=== PATIENT | male | born 1985 | race Caucasian/White ===

== ENCOUNTER 2018-05-18 13:30 | Day surgery (SDC) | payer OTHER ==
[~2018-05-18] VITALS: Ht 188 cm; Wt 81.6 kg
[2018-05-18] VITALS (9 sets, daily range): BP systolic 120–137; BP diastolic 64–84
--- NOTE | 2018-05-18 07:49 | Pre-Procedure Note/Attestation ---
Pre-Procedure Note/Attestation Complete Prior to Procedure Planned Procedure: right Procedure Narrative: shoulder arthroscopy, cc ligament reconstruction Indications for Procedure Pre-Operative Diagnosis: right shoulder rct/ ac joint seperation Attestation I attest that I discussed the nature of the procedure; its benefits; risks and complications; and alternatives (and the risks and benefits of such alternatives ), prior to the procedure, with the patient (or the patient's legal in store marketing representative). I attest that, if there was a reasonable possibility of needing a blood transfusion, the patient (or the patient's legal in store marketing representative) was given the [facility] standardized written summary, pursuant to the [place] Blood Safety Act ([place] Health and Safety Code # 1645, as amended). I attest that I re-evaluated the patient just prior to the surgery and that there has been no change in the patient's H&P, except as documented below: Nilesh Gifford MD May 18, 2018 07:49
--- NOTE | 2018-05-18 07:49 | Operative Note - PDOC ---
Operative Note Operative Note Pre-op Diagnosis: right shoulder rct/ ac joint seperation Procedure: see op report Post-op Diagnosis: same as pre-op plus Operative Findings: consistent w/pre-op dx studies Anesthesia: general Specimen: none Complications: none Condition: stable Estimated Blood Loss: none Implant(s) used?: Yes Nilesh Gifford MD May 18, 2018 07:49
[~2018-05-18 13:30] MED LIST: D5 1/2NS 1,000 ML IV SCH; HYDROmorphone 1mg/ml Carpuject SUBQ PRN; NKM; Norco 5mg/325mg tab ORAL PRN; Tylenol #3 tab (300mg/30mg) ORAL PRN; ceFAZolin 1gm in D5W 55ml IVP ONE; celeBREX 200mg Cap **SURGERY PATIENTS ONLY ORAL ONE; oxyCONTIN 20mg tab ORAL ONE
[2018-05-18] MEDS ORDERED: celeBREX 200mg Cap **SURGERY PATIENTS ONLY ORAL ONE (14:20)
[2018-05-18] MEDS ORDERED: oxyCONTIN 20mg tab ORAL ONE (14:20)
--- NOTE | 2018-05-18 15:18 | Anethesia Preoperative Eval ---
Anesthesia Pre-op PMH/ROS General Date of Evaluation: May 18, 2018 Anesthesiologist: Luis Alberto ASA Score: ASA 2 Mallampati Score Class I : Soft palate, uvula, fauces, pillars visible Class II: Soft palate, uvula, fauces visible Class III: Soft palate, base of uvula visible Class IV: Only hard plate visible Mallampati Classification: Class II Surgeon: Balta Diagnosis: Right shoulder derangement Surgical Procedure: Right shoulder arthroscopy Anesthesia History: none Family History: no anesthesia problems Allergies: Coded Allergies: No Known Allergies (Unverified , 05/17/18) Medications: see eMAR Past Medical History Cardiovascular: Denies: HTN, CAD, NC, valve dz, arrhythmia, other Pulmonary: Denies: asthma, COPD, JIM, other Gastrointestinal/Genitourinary: Denies: GERD, CRI, ESRD, other Neurologic/Psychiatric: Reports: other - migraines; Denies: dementia, CVA, depression/anxiety, TIA Endocrine: Denies: DM, hypothyroidism, steroids, other HEENT: Denies: cataract (L), cataract (R), glaucoma, [place] (L), [place] (R), other Hematology/Immune: Denies: anemia, DVT, bleeding disorder, other Musculoskeletal/Integumentary: Denies: OA, RA, DJD, DDD, edema, other PSxH Narrative: right ankle sx, right elbow/forearm sx Anesthesia Pre-op Phys. Exam Physician Exam Last Vital Signs Date Time Temp Pulse Resp B/P (MAP) Pulse Ox O2 Delivery O2 Flow Rate FiO2 05/18/18 14:09 Room Air 05/18/18 14:03 98.1 75 18 120/71 (87) 99 98.1 Constitutional: NAD Cardiovascular: RRR Respiratory: CTA Airway Exam Mallampati Score: Class II MO: full ROM: limited Teeth: intact Anesthesia Pre-op A/P Labs see chart Studies Pre-op Studies: EKG - sr Risk Assessment & Plan Assessment: ASA II Plan: GA with interscalene nerve block Status Change Before Surgery: No Pre-Antibiotics Drug: Ancef 2g Given Within 1 Hr of Incision: Yes Naye Gaviria MD May 18, 2018 15:17
[2018-05-18] MEDS ORDERED: Lidocaine 1% MPF 10mg/ml 5ml ONE (16:25)
[2018-05-18] MEDS ORDERED: Propofol 200mg/20ml IV ONE (16:25)
[2018-05-18] MEDS ORDERED: fentaNYL 100 mcg/2 mL IV ONE (16:26)
[2018-05-18] MEDS ORDERED: Midazolam 2mg/2ml Inj ONE (16:26)
[2018-05-18] MEDS ORDERED: Bupivacaine w/Epi 0.25% 30ml Vial INJ ONE ×2 (16:36→16:37)
[2018-05-18] MEDS ORDERED: Morphine Sulfate PF 10 ML ONE (16:36)
[2018-05-18] MEDS ORDERED: Ketorolac 30mg Inj ONE ×2 (16:36→16:46)
[2018-05-18] MEDS ORDERED: EPINEPHrine 1mg/1ml Amp ONE (16:36)
[2018-05-18] MEDS ORDERED: Kenalog-40 1ml Vial ONE (16:36)
[2018-05-18] MEDS ORDERED: LR 1000ml 1,000 ML IVLG SCH (16:47)
[2018-05-18] MEDS ORDERED: Hydromorphone 0.5mg/0.5ml inj IVP PRN (17:00)
[2018-05-18] MEDS ORDERED: Midazolam 2mg/2ml Inj IVP PRN (17:00)
[2018-05-18] MEDS ORDERED: Zemuron 50mg/5ml Inj IV ONE (17:00)
[2018-05-18] MEDS ORDERED: Metoclopramide 10mg/2ml Inj IVP PRN (17:00)
[2018-05-18] MEDS ORDERED: LORazepam Inj 2mg/ml 1ml IV PRN (17:00)
[2018-05-18] MEDS ORDERED: DiphenhydrAMINE 50mg/ml Inj IVP PRN (17:00)
[2018-05-18] MEDS ORDERED: LR 1000ml ONE (17:00)
[2018-05-18] MEDS ORDERED: Labetalol 5mg/ml 20ml vial IV PRN (17:00)
[2018-05-18] MEDS ORDERED: fentaNYL 100 mcg/2 mL IV PRN (17:00)
[2018-05-18] MEDS ORDERED: NS Irrig 4000ml IRRIG ONE (17:00)
[2018-05-18] MEDS ORDERED: Ketorolac 30mg Inj IV PRN (17:00)
[2018-05-18] MEDS ORDERED: Duramorph PF 10mg/10ml amp EPIDUR ONE (17:28)
--- NOTE | 2018-05-18 19:14 | Immediate Post-Op Evaluation ---
Immediate Post-Op Evalulation Immediate Post-Op Evalulation Procedure: Right shoulder arthroscopy Date of Evaluation: May 18, 2018 Time of Evaluation: 19:15 IV Fluids: 1.1L Blood Products: 0 Estimated Blood Loss: min Urinary Output: 0 Blood Pressure Systolic: 120 Blood Pressure Diastolic: 65 Pulse Rate: 82 Respiratory Rate: 16 O2 Sat by Pulse Oximetry: 100 Temperature (Fahrenheit): 97.9 Pain Score (1-10): 0 Nausea: No Vomiting: No Complications 0 Patient Status: awake, reacts, patent, none Hydration Status: adequate Drug: Ancef 2g Given Within 1 Hr of Incision: Yes Time Given: 17:30 Naye Gaviria MD May 18, 2018 19:14
--- NOTE | 2018-05-18 19:15 | 48 Hour Post Anesthesia Eval ---
Post Anesthesia Evaluation Procedure: Right shoulder arthroscopy Date of Evaluation: May 18, 2018 Airway: patent Nausea: No Vomiting: No Pain Intensity: 0 Hydration Status: adequate Cardiopulmonary Status: at baseline Mental Status/LOC: patient returned to baseline Post-Anesthesia Complications: 0 Follow-up care needed: ready to discharge Naye Gaviria MD May 18, 2018 19:15
--- NOTE | 2018-05-19 02:45 | Operative Note - Dictated ---
DATE OF OPERATION: 05/18/2018 PREOPERATIVE DIAGNOSES: 1. Right shoulder AC joint sprain. 2. Right shoulder anterior labral tear. 3. Right shoulder partial bursal-sided articular rotator cuff tear. PROCEDURES: 1. Right shoulder diagnostic arthroscopy. 2. Right shoulder anterior labral stabilization. 3. Right shoulder subacromial decompression bursoscopy. 4. Debridement/repair of partial bursal-sided rotator cuff tear. SURGEON: Nilesh Gifford M.D. ANESTHESIA: Interscalene with general. INDICATION FOR PROCEDURE: The patient is a pleasant 32-year-old gentleman, who had a significant injury to the right shoulder, had difficulty articulating, failed conservative treatment, and diagnosed with AC joint separation with concurrent anterior labral tear. Risks, limitations, expectations, and complications of the procedure were discussed in detail. We discussed with him that we will go ahead and perform a diagnostic arthroscopy and then fix the labrum. At the time of the surgery, we would evaluate for AC instability and if he has significant stability, then we will proceed with a formal coracoclavicular ligament reconstruction using the tibialis anterior allograft. Risks, limitations, expectations, and complications of the procedure were discussed in detail. All questions addressed. DESCRIPTION OF PROCEDURE: After informed consent was obtained, the patient was brought to the operating room. The patient was placed under interscalene general anesthesia. The patient was then carefully placed in beach-chair position. Right shoulder was prepped and draped in a sterile manner. Ancef was administered. Time-out was performed. Examination under anesthesia showed that there was a slight anterior translation to the AC joint, but no significant posterior or inferior displacement. It was felt that clinically there was enough instability, maybe consider formal repair depending on what is the nature of the joint space. Therefore, the camera was then placed in the glenohumeral joint. There is significant positive drive-through test. There is a tear along the inferior-anterior labrum. Biceps tendon appeared to be intact along with the superior labrum. Subscap was intact along with the bursal-sided rotator cuff. Two anterior working portals were established. The labrum was debrided of the anterior glenoid and two arthroscopic knots were then used to stitch down the anterior-inferior labrum back down to glenoid. Of note, there is grade 2 chondral damage in glenoid. At this point, the camera was positioned in the subacromial space. There was significant hypertrophic bursal tissue. Lateral working portal was established and complete bursectomy was performed. Once that was done, the bursal side of rotator cuff was evaluated and there was some fraying and tearing of the bursal side of rotator cuff. Once this was debrided using a shaver, we felt no formal fixation was required. At this point, the AC joint was identified arthroscopically and the joint was manipulated. Given the intraoperative findings of the significant anterior labral pathology and that there is not gross instability of the AC joint, it was felt that formal reconstruction of cortical clavicular ligament reconstruction was not necessary at this point. Therefore, the instruments were removed. Portal sites were closed with 3-0 Monocryl suture. Steri-Strips and dressing were applied. The patient was awoken and taken to recovery room with stable vital signs. ESTIMATED BLOOD LOSS: None. COMPLICATIONS: None. SPECIMENS: None. IMPLANTS: Two JuggerKnot anchors. Nilesh Gifford M.D. DR: NICHOLAS JOB#: [id number] CC:
== END 2018-05-18 20:14 | disposition home or self-care (01) ==
LOC: SUR 13:30
DX: S43.51XA Sprain of right acromioclavicular joint, initial encounter (principal); S43.431A Superior glenoid labrum lesion of right shoulder, initial encounter; M75.111 Incomplete rotator cuff tear or rupture of right shoulder, not specified as traumatic; F17.210 Nicotine dependence, cigarettes, uncomplicated; G43.909 Migraine, unspecified, not intractable, without status migrainosus
CPT/HCPCS: 29823; 29826; J0171; J0690; J1885; J2250; J2274; J2405; J2704; J3010; J3301; 94003; 94150; C1713

== ENCOUNTER 2018-08-30 07:31 | Inpatient (IN) | payer OTHER ==
[~2018-08-30] VITALS: Ht 188 cm; Wt 80.7 kg
[2018-08-30] VITALS (15 sets, daily range): BP systolic 103–134; BP diastolic 54–73
[~2018-08-30 07:31] MED LIST changes: -D5 1/2NS 1,000 ML IV SCH; -HYDROmorphone 1mg/ml Carpuject SUBQ PRN; -Norco 5mg/325mg tab ORAL PRN; -Tylenol #3 tab (300mg/30mg) ORAL PRN; +Vancomycin 1 GM in D5W 275 ML IVPB ONE; -ceFAZolin 1gm in D5W 55ml IVP ONE; -celeBREX 200mg Cap **SURGERY PATIENTS ONLY ORAL ONE; -oxyCONTIN 20mg tab ORAL ONE
[2018-08-30 08:22] LABS: APPEARANCE,URINE SLIGHTLY CLOUDY; BILIRUBIN, URINE NEGATIVE (NEGATIVE); GLUCOSE, URINE (UA) NEGATIVE (NEGATIVE); KETONES,URINE 1+ (NEGATIVE); LEUKOCYTE ESTERASE ,URINE 1+ (NEGATIVE); NITRITE,URINE NEGATIVE (NEGATIVE); PH,URINE 5 (4.5-8.0); PROTEIN,URINE 2+ (NEGATIVE); UROBILINOGEN,URINE 4 MG/DL (0.0-1.0)
[2018-08-30 08:39] LABS: COLOR,URINE YELLOW
[2018-08-30] MEDS ORDERED: ceFAZolin sod 2 GM in NS 55 ML IVPB ONE (08:45)
--- NOTE | 2018-08-30 08:45 | NUR ---
IV LR WAS STARTED BY GABRIEL HUMPHREYOPS RN. NO S/S OF INFILTRATION.
--- NOTE | 2018-08-30 09:31 | Diagnostic Imaging Report ---
Indication: Cough Technique: One view of the chest Comparison: none Findings: Lungs and pleural spaces are clear. Heart size is normal Impression: No acute process
[2018-08-30] MEDS ORDERED: LR 1000ml 1,000 ML IVLG SCH (10:31)
--- NOTE | 2018-08-30 10:33 | Anethesia Preoperative Eval ---
Anesthesia Pre-op PMH/ROS General Date of Evaluation: Aug 30, 2018 Time of Evaluation: 11:44 Anesthesiologist: Armand ASA Score: ASA 1 Mallampati Score Class I : Soft palate, uvula, fauces, pillars visible Class II: Soft palate, uvula, fauces visible Class III: Soft palate, base of uvula visible Class IV: Only hard plate visible Mallampati Classification: Class II Surgeon: Tj Diagnosis: Neck Pain Surgical Procedure: ACDF C6-7 Anesthesia History: none Family History: no anesthesia problems Allergies: Coded Allergies: No Known Allergies (Unverified , 05/17/18) Medications: see eMAR Patient NPO?: Yes NPO Date: Aug 30, 2018 NPO Time: 0530 Past Medical History Neurologic/Psychiatric: Reports: other - Migranes PSxH Narrative: R Ankle, R Elbow /Forearm SX Anesthesia Pre-op Phys. Exam Physician Exam Last Vital Signs Date Time Temp Pulse Resp B/P (MAP) Pulse Ox O2 Delivery O2 Flow Rate FiO2 08/30/18 08:25 97.8 76 20 124/72 (89) 100 08/30/18 08:13 Room Air Constitutional: NAD Neurologic: CN 2-12 intact Cardiovascular: RRR Respiratory: CTA Gastrointestinal: S/NT/ND Airway Exam Mallampati Score: Class II MO: full ROM: limited Teeth: intact Anesthesia Pre-op A/P Risk Assessment & Plan Assessment: ASA 1 Plan: GA, SED, GlideScope Go Status Change Before Surgery: No Pre-Antibiotics Dru Grams Ancef, 80 mg Gentamicin IV Given Within 1 Hr of Incision: Yes Time Given: 12:01 Moi Acuna MD Aug 30, 2018 10:33
[2018-08-30] MEDS ORDERED: Dexamethasone 4mg/ml vial ONE (10:34)
[2018-08-30] MEDS ORDERED: Sodium Chloride 10ml vial INJ ONE (10:34)
[2018-08-30] MEDS ORDERED: Lidocaine 1% MPF 10mg/ml 5ml ONE (10:34)
[2018-08-30] MEDS ORDERED: Lidocaine 1% Plain 30 ml INJ ONE ×2 (10:35→13:30)
[2018-08-30] MEDS ORDERED: DiphenhydrAMINE 50mg/ml Inj IVP PRN ×2 (10:45→15:30)
[2018-08-30] MEDS ORDERED: Meperidine 50mg/ml Inj(FOR RIGORS ONLY) IVP PRN ×2 (10:45→15:30)
[2018-08-30] MEDS ORDERED: Metoclopramide 10mg/2ml Inj IVP PRN ×2 (10:45→15:30)
[2018-08-30] MEDS ORDERED: Norco 5mg/325mg tab ORAL PRN ×2 (10:45→15:30)
[2018-08-30] MEDS ORDERED: Midazolam 2mg/2ml Inj IVP PRN ×2 (10:45→15:30)
[2018-08-30] MEDS ORDERED: HYDROcodone/Acetamin 7.5/325 tab ORAL PRN ×2 (10:45→15:30)
[2018-08-30] MEDS ORDERED: Acetaminophen (Non formulary) 100 ML IV ONE (10:45)
[2018-08-30] MEDS ORDERED: Atropine Sulfate 0.4mg/ml inj IVP PRN ×2 (10:45→15:30)
[2018-08-30] MEDS ORDERED: Ketorolac 30mg Inj IV PRN ×4 (10:45→15:30)
[2018-08-30] MEDS ORDERED: oxyCODONE HCL/Acetaminophen 5/325mg ORAL PRN ×2 (10:45→15:30)
[2018-08-30] MEDS ORDERED: fentaNYL 100 mcg/2 mL IV PRN ×2 (10:45→15:30)
[2018-08-30] MEDS ORDERED: fentaNYL 100 mcg/2 mL IV ONE ×4 (10:45→14:05)
[2018-08-30] MEDS ORDERED: Hydromorphone 0.5mg/0.5ml inj IVP PRN ×3 (10:45→15:30)
[2018-08-30] MEDS ORDERED: LORazepam Inj 2mg/ml 1ml IV PRN ×2 (10:45→15:30)
[2018-08-30] MEDS ORDERED: Thrombin 5000 units TOPIC ONE (11:42)
[2018-08-30] MEDS ORDERED: Bupivacaine w/Epi 0.5% 30ml Vial INJ ONE (11:43)
[2018-08-30] MEDS ORDERED: Bacitracin 50000 Units Vial ONE (11:43)
[2018-08-30] MEDS ORDERED: NS Irrig 1000ml ONE (11:45)
[2018-08-30] MEDS ORDERED: Labetalol 5mg/ml 20ml vial IV ONE (11:45)
[2018-08-30] MEDS ORDERED: LR 1000ml ONE ×2 (11:45)
[2018-08-30] MEDS ORDERED: Propofol 1,000mg/ 100ml btl IV ONE (11:45)
[2018-08-30] MEDS ORDERED: Neostigmine 1mg/ml 10ml Inj ONE (11:45)
--- NOTE | 2018-08-30 12:43 | Immediate Post-Op Evaluation ---
Immediate Post-Op Evalulation Immediate Post-Op Evalulation Procedure: ACDF C6-7 Date of Evaluation: Aug 30, 2018 Time of Evaluation: 15:00 IV Fluids: 1100 LR Blood Products: 0 Estimated Blood Loss: 50 Urinary Output: 0 Blood Pressure Systolic: 132 Blood Pressure Diastolic: 73 Pulse Rate: 77 Respiratory Rate: 16 O2 Sat by Pulse Oximetry: 100 Temperature (Fahrenheit): 97.6 Pain Score (1-10): 2 Nausea: No Vomiting: No Complications 0 Patient Status: awake, reacts, patent, extubated, none Hydration Status: adequate Dru Grams Ancef, 80 mg Gentamicin IV Given Within 1 Hr of Incision: Yes Time Given: 12:01 Moi Acuna MD Aug 30, 2018 12:43
--- NOTE | 2018-08-30 12:44 | 48 Hour Post Anesthesia Eval ---
Post Anesthesia Evaluation Procedure: ACDF C6-7 Date of Evaluation: Aug 30, 2018 Time of Evaluation: 17:06 Blood Pressure Systolic: 118 0: 65 Pulse Rate: 72 Respiratory Rate: 18 Temperature (Fahrenheit): 98.2 O2 Sat by Pulse Oximetry: 100 Airway: patent Nausea: No Vomiting: No Pain Intensity: 2 Hydration Status: adequate Cardiopulmonary Status: Stable Mental Status/LOC: patient returned to baseline Follow-up Care/Observations: 0 Post-Anesthesia Complications: 0 Follow-up care needed: ready to discharge Moi Acuna MD Aug 30, 2018 12:44
[2018-08-30] MEDS ORDERED: Glycopyrrolate 0.2mg/ml 1ml Vial ONE (14:03)
[2018-08-30] MEDS ORDERED: Naloxone 0.4mg/ml Inj ONE (14:25)
--- NOTE | 2018-08-30 14:32 | Pre-Procedure Note/Attestation ---
Pre-Procedure Note/Attestation Complete Prior to Procedure Planned Procedure: not applicable Procedure Narrative: C6/7 herniated disk Indications for Procedure Pre-Operative Diagnosis: C6/7 herniated disk Attestation I attest that I discussed the nature of the procedure; its benefits; risks and complications; and alternatives (and the risks and benefits of such alternatives ), prior to the procedure, with the patient (or the patient's legal installation service representative). I attest that, if there was a reasonable possibility of needing a blood transfusion, the patient (or the patient's legal installation service representative) was given the [facility] standardized written summary, pursuant to the [place] Blood Safety Act ([place] Health and Safety Code # 1645, as amended). I attest that I re-evaluated the patient just prior to the surgery and that there has been no change in the patient's H&P, except as documented below: Yung Spencer MD Aug 30, 2018 14:32
[2018-08-30] MEDS ORDERED: HYDROmorphone 1mg/ml Carpuject IVP PRN (14:45)
[2018-08-30] MEDS ORDERED: HYDROmorphone 1mg/ml Carpuject SUBQ PRN (14:45)
--- NOTE | 2018-08-30 14:52 | Brief Operative Note ---
Immediate Post Operative Note Operative Note Pre-op Diagnosis: C6/7 herniated disk Post-op Diagnosis: same as pre-op Anesthesia: general Specimen: none Complications: none Condition: stable Fluids: 1000 Estimated Blood Loss: volume - 25cc Drains: none Implant(s) used?: Yes Yung Spencer MD Aug 30, 2018 14:52
[2018-08-30] MEDS ORDERED: D5 1/2NS 1,000 ML IV SCH (16:22)
--- NOTE | 2018-08-30 16:25 | NUR ---
NURSE NOTES: Received report for pt by BRODY Barrios. Pt in bed in sleeping/drowsy, obeys commands. VS stable. Anterior neck dressing D/C/I, with ice pack in place. Patent IV to right hand running LR. Skin intact. Pt left in bed in low position, call light within reach, bed alarm on. VS machine attached to pt to run VS Q15min. Will continue to monitor.
--- NOTE | 2018-08-30 17:36 | Diagnostic Imaging Report ---
INDICATION: Pain, intraoperative TECHNIQUE: Intraoperative imaging Fluoroscopy time: None seconds Total dose: 0.67136 mGym2 Total number of images: 5 COMPARISON: None FINDINGS: Intraoperative images demonstrate surgical tool projected at the anterior aspect of the C6-7 disc. Subsequent images document placement of a disc spacer and anterior fusion hardware at C6-7. IMPRESSION: Intraoperative imaging, as described
[2018-08-30] MEDS ORDERED: Vancomycin 1 GM in D5W 275 ML IVPB SCH (18:00)
--- NOTE | 2018-08-30 18:47 | NUR ---
Called Dr. Spencer to notify pt is drowsy and sleepy. VS stable, obeys commands, opens eyes to shaking but returns to sleep. Per Dr. Spencer, pt is to stay overnight and monitor. Per MD, ambulate patient. Will carry out intervention and continue to monitor. Addendum: 08/30/18 at 191 by Julianne Dumont RN Ambulated pt, he is awake a/o x 4. Speaking in full sentences, verbalized needs. Will endorse to night nurse Addendum: 08/30/18 at 1952 by Julianne Dumont RN Dr. Spencer came in to see pt, per Dr. Spencer pt is to go home tomorrow 08/31 @ 0500. Endorsed to BRODY Knox
--- NOTE | 2018-08-30 19:35 | NUR ---
HAND-OFF: Report given to BRODY Knox. Pt stayed in bed a/o x 4 in stable condition. IV fluids running as ordered, patent Right hand IV. Pt left in bed in low position, call light within reach, skid socks on.
--- NOTE | 2018-08-30 19:58 | Orthopedic Progress Note ---
Orthopedic - Progress Note Subjective Symptoms: improved Objective Last 24 Hour Vital Signs Date Time Temp Pulse Resp B/P (MAP) Pulse Ox O2 Delivery O2 Flow Rate FiO2 08/30/18 18:45 97.4 78 20 119/61 (80) 98 08/30/18 17:45 97.5 80 20 119/60 (79) 98 08/30/18 17:15 97.7 88 19 117/57 (77) 98 08/30/18 16:45 97.8 76 20 117/56 (76) 98 08/30/18 16:30 97.7 85 19 119/54 (75) 98 08/30/18 16:22 Nasal Cannula 3.0 08/30/18 16:15 98.5 87 16 116/56 (76) 98 08/30/18 15:50 97.9 85 15 123/59 99 Nasal Cannula 3 08/30/18 15:35 81 15 134/61 100 Nasal Cannula 3 08/30/18 15:20 82 16 124/66 100 Nasal Cannula 3 08/30/18 15:10 79 19 121/70 100 Simple Mask 6 08/30/18 14:59 81 18 128/72 100 Simple Mask 6 08/30/18 14:54 80 15 131/73 100 Simple Mask 6 08/30/18 14:51 72 18 100 08/30/18 14:50 77 16 100 08/30/18 14:49 97.6 77 16 132/73 100 Simple Mask 6 08/30/18 08:25 97.8 76 20 124/72 (89) 100 08/30/18 08:13 Room Air Laboratory Tests Test 08/30/18 07:40 Urine Color Yellow Urine Appearance Slightly cloudy Urine pH 5 (4.5-8.0) Urine Specific [place] 1.025 (1.005-1.035) Urine Protein 2+ (NEGATIVE) H Urine Glucose (UA) Negative (NEGATIVE) Urine Ketones 1+ (NEGATIVE) H Urine Blood 1+ (NEGATIVE) H Urine Nitrite Negative (NEGATIVE) Urine Bilirubin Negative (NEGATIVE) Urine Urobilinogen 4 MG/DL (0.0-1.0) H Urine Leukocyte Esterase 1+ (NEGATIVE) H Urine RBC 2-4 /HPF (0 - 0) H Urine WBC 5-10 /HPF (0 - 0) H Urine Squamous Epithelial Cells Occasional /LPF Urine Bacteria Few /HPF (NONE) Wound: dry Drains: none Neuro Status: normal Plan Plan: continue antibiotics, discharge to home Yung Spencer MD Aug 30, 2018 19:58
[2018-08-30] MEDS ORDERED: ceFAZolin 2gm/50ml Premix 50 ML IV SCH (20:00)
[2018-08-30] MEDS ORDERED: ceFAZolin sod 2 GM in D5W 110 ML IV SCH (20:00)
--- NOTE | 2018-08-30 20:30 | Operative Note - Dictated ---
DATE OF OPERATION: 08/30/2018 PREOPERATIVE DIAGNOSES: Trauma to the cervical spine with fracture at C6-C7 with fracture of the inferior endplate of C6. There were also fractures of the superior endplate of C6, the inferior endplate of C5, but they are not that significant. He also had a herniated disc at C6 causing compression of the spinal cord. POSTOPERATIVE DIAGNOSES: Trauma to the cervical spine with fracture at C6-C7 with fracture of the inferior endplate of C6. There were also fractures of the superior endplate of C6, the inferior endplate of C5, but they are not that significant. He also had a herniated disc at C6 causing compression of the spinal cord. PROCEDURE: 1. Microscopic anterior cervical decompression using the operating room microscope. This was done at C6-C7. This included a partial vertebrectomy of the caudal endplate at C6 and a partial vertebrectomy of the cranial endplate at C7. 2. Anterior cervical fusion using a distraction arthrodesis technique to open up the foramen. 3. Insertion of a titanium coated PEG cage from [employer] at C6-C7. 4. Anterior stabilization, C6-C7 using a contoured [employer] plate. 5. Use of local bone graft. 6. Intraoperative use of fluoroscopy. SURGEON: Yung Spencer M.D. MEMBERSHIP SECRETARY: Finn Toribio M.D. ANESTHESIA: General with endotracheal intubation. ANESTHESIOLOGIST: Moi Acuna M.D. COMPLICATIONS: None. ESTIMATED BLOOD LOSS: Approximately 20 mL. COUNTS: All sponge and needle counts were reported as correct at the end of the procedure. DESCRIPTION OF PROCEDURE: Under general anesthesia with endotracheal intubation, the patient was placed in the supine position on the operating table. Neck was prepped and draped in usual manner. Head halter was applied and he was placed in the 10 pounds of axial traction. Once the neck was prepped and draped, an incision was made left side of the neck. This was carried down through skin and subcutaneous tissues. Soft tissues were dissected off of the platysma. Platysma was incised. Dissection was carried medial to the sternocleidomastoid muscle and medial to the carotid sheath. Once the spine was identified, longus colli muscles were elevated and a Cloward type retractor was inserted. The C6-C7 interspace was identified. The anulus was incised with a knife. This was removed with pituitary rongeurs. A distraction post was placed in C5 and C7. The interspace was further distracted. The disc was removed back to posterior longitudinal ligament. High-speed bur was used to decorticate the endplates and remove the cranial edge aspect of C7 and the caudal aspect of C6. C6, there was a large fracture going up centrally creating a dome. This was paralleled off using the high-speed bur posterior longitudinally. It was then taken down under the operating microscope and the canal and neurologic structures were decompressed. Following this, the cage was then selected. It was 9 mm height. It was packed with local bone and demineralized bone matrix and then gently tapped into position under fluoroscopic control and direct vision. Once this was completed, distraction was then removed. Distraction posts were then removed. Motor testing was done, was noted to be unchanged. The plate was then contoured and applied to the spine using 2 screws in the body of C6, 2 in the body of C7. All screws were appropriately locked. Hemostasis was achieved. The wound was then closed in layers using 2-0 for platysma and 4-0 for subcuticular closure. Sterile dressings were applied. The patient was taken to recovery room and judged stable condition and neurologically unchanged. Yung Spencer MD DR: ROBBI JOB#: [id number] CC:
--- NOTE | 2018-08-30 22:00 | NUR ---
pt stated dc home now CALLED AND ORDER MADE AWARE FOR OK TO DC HOMR DISCHARGED INSTRUCTION GIVEN FOLLOW UP APPOINTMENT WILL CALL BY PT. DC MEDICATION GIVEN BY RECOVERY NURSE.
--- NOTE | 2018-08-30 23:00 | NUR ---
PT DISCHARGED HOME VIA WHEEL CHAIR ACCOMPANIED BY yandel gilman
--- NOTE | 2018-08-31 13:04 | Discharge Summary ---
Discharge Summary Discharge Summary _ DATE OF ADMISSION: 08/30/2018 DATE OF DISCHARGE: 08/30/2018 DISCHARGED BY: Dr. Yung Spencer BRIEF HOSPITAL COURSE: Patient is a 33-year-old male, who had trauma to the cervical spine with fracture at C6-C7 and fracture of the inferior endplate of C6. There are also fractures of the superior endplate of C6, inferior endplate of C5. He had herniated disc at C6 causing compression of the spinal cord. Patient was admitted on 08/30/2018 and underwent ACDF C6-C7 with partial vertebrectomy of the caudal endplate at C6 and partial vertebrectomy of the cranial endplate at C7. He tolerated procedure well. Surgery was uneventful. Post-operatively, patient was admitted for post-op care. He was placed on SCDs for DVT prophylaxis and was encouraged use of incentive spirometer. Patient was given pain management. He was seen by PT and OT. Diet was advanced. Incision was clean, dry and intact. Patient was ambulating well with good pain control and tolerating diet. Patient was eventually cleared for discharge home. PREOPERATIVE DIAGNOSES: Trauma to the cervical spine with fracture at C6-C7 with fracture of the inferior endplate of C6. There were also fractures of the superior endplate of C6, the inferior endplate of C5, but they are not that significant. He also had a herniated disc at C6 causing compression of the spinal cord. POSTOPERATIVE DIAGNOSES: Trauma to the cervical spine with fracture at C6-C7 with fracture of the inferior endplate of C6. There were also fractures of the superior endplate of C6, the inferior endplate of C5, but they are not that significant. He also had a herniated disc at C6 causing compression of the spinal cord. PROCEDURE: 1. Microscopic anterior cervical decompression using the operating room microscope. This was done at C6-C7. This included a partial vertebrectomy of the caudal endplate at C6 and a partial vertebrectomy of the cranial endplate at C7. 2. Anterior cervical fusion using a distraction arthrodesis technique to open up the foramen. 3. Insertion of a titanium coated PEG cage from [employer] at C6-C7. 4. Anterior stabilization, C6-C7 using a contoured [employer] plate. 5. Use of local bone graft. 6. Intraoperative use of fluoroscopy. DISPOSITION: Patient was discharged home. DISCHARGE MEDICATIONS: Refer to Discharge Medication List. DISCHARGE INSTRUCTIONS: Follow-up in a week. I have been assigned to dictate discharge summary on this account, and I was not involved in the patient's management. Denice Kennedy NP Aug 31, 2018 13:04
== END 2018-08-30 23:00 | disposition home or self-care (01) | DRG 473 ==
LOC: SUR 07:31 → MERGE 11:30 → EDSTATUS 11:30 → 3E 16:03
PROC: 0RT30ZZ Resection of Cervical Vertebral Disc, Open Approach (ICD-10-PCS; principal; 2018-08-30 11:30)
PROC: 0RG10A0 Fusion of Cervical Vertebral Joint with Interbody Fusion Device, Anterior Approach, Anterior Column, Open Approach (ICD-10-PCS; principal; 2018-08-30 11:30)
DX: M50.023 Cervical disc disorder at C6-C7 level with myelopathy (principal); S12.500S Unspecified displaced fracture of sixth cervical vertebra, sequela; S12.400S Unspecified displaced fracture of fifth cervical vertebra, sequela; V29.88XS Motorcycle rider (driver) (passenger) injured in other specified transport accidents, sequela; F17.200 Nicotine dependence, unspecified, uncomplicated
CPT/HCPCS: 36415; 71045; 72040; 76001; 81001; 86850; 86900; 86901; 87081; 94003; 94150; G0378; J2405; J2710